=== PATIENT | female | born 1955 | race Caucasian/White ===

== ENCOUNTER → 2017-10-11 | Outpatient (CLI) | payer OTHER ==
[~2017-10-11] MED LIST: AMARYL2 MG PO; CALCIUM500 MG PO; CRESTOR20 MG PO; EXEMESTANE25 MG PO; HYDROXYCHLOROQ200 M1 PO; LISINOPRIL20 MG PO; PIOGLITAZONE-M1 EACH PO; VESICARE10 M1 PO; VITAMIN D1000 UNI1 PO; ZOLOFT50 MG PO
--- NOTE | ~2017-10-11 | EKG ---
[address] [address] ELECTROCARDIOGRAM REPORT Name: SAUL SHELTON Room #: REG [facility]#: [id number] Admission: 10/11/17 Attend Phys: Joao Martinez MD Discharge: Date of : 55 Report #: [id number] THIS REPORT FOR: //name// [facility] Test Date: 2017-10-11 Test Time: 12:54:29 Pat Name: SAUL SHELTON Department: Room: Gender: F [employer]: LILI : 1955 Requested By: Joao Martinez Order Number: [id number] MD: Fernando Hirsch Measurements Intervals [place] Rate: 81 P: 50 MS: 160 QRS: 38 QRSD: 107 T: 17 QT: 386 QTc: 448 Interpretive Statements Sinus rhythm Small inferior Q waves No previous ECG available for comparison Electronically Signed On 10-11-2017 16:32:26 [employer] by Fernando Hirsch [email or web address] <ELECTRONICALLY SIGNED> By: Fernando Hisrch MD, [facility] 10/11/17 1632 1254 1254 Fernando Hirsch MD, FACC /EPI
== END ==
LOC: LITH 12:22
DX: N20.0 Calculus of kidney (principal); Z98.890 Other specified postprocedural states; Z90.49 Acquired absence of other specified parts of digestive tract; Z79.899 Other long term (current) drug therapy